=== PATIENT | female | born 1950 | race Hispanic/Latino ===

== ENCOUNTER 2017-09-20 14:05 | Emergency (ER) | payer OTHER ==
[~2017-09-20] VITALS: Ht 154.9 cm; Wt 80.7 kg
[2017-09-20] MEDS ORDERED: SODIUM CHLORIDE 0.9% 1000ML 1,000 ML IV STA (14:48)
[2017-09-20] MEDS ORDERED: MORPHINE SULFATE 4 MG/ML SYR IV STA (14:48)
[2017-09-20] MEDS ORDERED: ONDANSETRON HCL INJ 2 MG/ML VIAL IV STA (14:48)
[2017-09-20 14:56] LABS: BASOPHILS # (AUTO) 0.1 (0.0-0.1); BASOPHILS % 0.8 % (0.0-1.0); EOSINOPHILS # (AUTO) 0.2 (0.0-0.4); HEMATOCRIT 43.8 % (34.2-44.1); HEMOGLOBIN 14.7 g/dL (12.0-16.0); LYMPHOCYTES # (AUTO) 3.3 (1.0-3.2); LYMPHOCYTES % 35.8 % (18.0-39.1); MEAN CORPUSCULAR HEMOGLOBIN 28.3 pg (28-32); MEAN CORPUSCULAR HGB CONC 33.6 g/dL (31-35); MEAN CORPUSCULAR VOLUME 84.2 fL (81-99); MONOCYTES # (AUTO) 0.6 (0.2-0.8); MONOCYTES % 6.2 % (4.4-11.3); NEUTROPHILS % 54.9 % (38.7-80.0); PLATELET COUNT 369 x10e3/uL (140-360); RED CELL DISTRIBUTION WIDTH 13.6 % (11.7-14.4)
[2017-09-20 15:08] LABS: ALBUMIN 4.1 g/dL (3.5-5.0); ALBUMIN/GLOBULIN RATIO 0.9 (0.8-2.0); ANION GAP 14.5 mmol/L (8-16); CALCIUM 9.2 mg/dL (8.4-10.2); CREATININE, SERUM 1.09 mg/dL (0.57-1.11)
[2017-09-20 15:16] LABS: POTASSIUM 2.5 mmol/L (3.5-5.1)
[2017-09-20 15:46] LABS: BILIRUBIN,URINE NEGATIVE (NEGATIVE); CLARITY,URINE CLEAR (CLEAR); COLOR,URINE YELLOW (YELLOW); KETONES,URINE NEGATIVE (NEGATIVE); LEUKOCYTE ESTERASE ,URINE 2+ (NEGATIVE); NITRITE,URINE NEGATIVE (NEGATIVE); URINE UROBILINOGEN 0.2 mg/dL (0.2 - 1)
[2017-09-20 15:49] LABS: PROTEIN,URINE DIPSTICK 1+ (NEGATIVE)
[2017-09-20 15:50] LABS: BACTERIA,URINE FEW /HPF; EPITHELIAL CELLS,URINE FEW /LPF
[2017-09-20 15:53] LABS: STREPTOCOCCUS GRP A ANTIGEN NEGATIVE (NEGATIVE)
[2017-09-20 16:00] LABS: INFLUENZAE A&B ANTIGEN (RAPID) NEGATIVE (NEGATIVE)
[2017-09-20] MEDS ORDERED: MORPHINE SULFATE 5 MG/ML VIAL IV SCH (16:00)
--- NOTE | 2017-09-20 16:23 | Diagnostic Imaging Report ---
PROCEDURE: Frontal and lateral views of the chest. COMPARISON: None. INDICATIONS: SOB, VOMITING FINDINGS: Lines/tubes: None. Lungs: The lungs are well inflated and clear. There is no evidence of pneumonia or pulmonary edema. Pleura: There is no pleural effusion or pneumothorax. Heart and mediastinum: The heart and the mediastinum are normal. Bones: No acute bony abnormality. IMPRESSION: 1. No acute cardiopulmonary abnormalities. Sammy Smith M.D. Dictated by: Sammy Smith M.D. on 09/20/2017 at 16:31 Electronically approved by: Sammy Smith M.D. on 09/20/2017 at 16:31
--- NOTE | 2017-09-20 16:29 | Diagnostic Imaging Report ---
PROCEDURE: CT ABDOMEN AND PELVIS WITH CONTRAST TECHNIQUE: A The abdomen and pelvis were scanned utilizing a multidetector helical scanner from the diaphragm to the lesser trochanter after the IV administration of 100 cc of Isovue 370 and the oral administration of water. Coronal and sagittal multiplanar reformations were obtained. COMPARISON: None. INDICATIONS: NAUSEA, VOMITING SINCE SATURDAY FINDINGS: LOWER THORAX: Normal. HEPATOBILIARY: Normal hepatic size and contour. 2.2 x 1.6 cm hepatic segment II/III (series 2 image 12) and 2.1 x 2.0 cm hepatic segment IVB (series 2 image 22) fluid density lesions, consistent with simple cysts. Subcentimeter hypodense lesions in segments II (series 2, image 8), and VIII (series 2, image 16), are to small to characterize, but likely represent small cysts. No other focal lesions. No biliary ductal dilation. Gallbladder is unremarkable. SPLEEN: No splenomegaly. PANCREAS: No focal masses or ductal dilatation. ADRENALS: No adrenal nodules. KIDNEYS/URETERS: No hydronephrosis, stones, or solid mass lesions. PELVIC ORGANS/BLADDER: Bladder is unremarkable. Uterus is absent. No adnexal masses. PERITONEUM / RETROPERITONEUM: No free air or fluid. LYMPH NODES: No lymphadenopathy. VESSELS: Unremarkable GI TRACT: No bowel dilation or evidence of obstruction. No pericolonic inflammatory changes. Stomach is unremarkable. BONES AND SOFT TISSUES: No aggressive lytic lesions. Mild degenerative changes in the lower lumbosacral spine. Small fat-containing umbilical hernia. IMPRESSION: 1. No acute abdominopelvic abnormalities. Unremarkable appearance of the bowel. 2. Simple hepatic cysts. Sammy Smith M.D. Dictated by: Sammy Smith M.D. on 09/20/2017 at 16:38 Electronically approved by: Sammy Smith M.D. on 09/20/2017 at 16:38
[2017-09-20] MEDS ORDERED: KCL 20MEQ/.9 SOD CHL 1,000 ML IV SCH ×2 (16:30→16:45)
[2017-09-20] MEDS ORDERED: CEFTRIAXONE SOD 1 GM VIAL IV SCH (16:30)
[2017-09-20] MEDS ORDERED: POTASSIUM CHLORIDE 20 MEQ TAB CR PO STA (18:20)
[2017-09-20 18:32] VITALS: BP 116/71
[2017-09-20] MEDS ORDERED: TYLENOL WITH C1 EACH PO (18:50)
[2017-09-20] MEDS ORDERED: BENTYL10 MG PO (18:50)
[2017-09-20] MEDS ORDERED: BACTRIM DS TAB1 EACH PO (18:50)
[2017-09-20] MEDS ORDERED: PROMETHAZINE HC25 M1 PO (18:50)
[2017-09-20] MEDS ORDERED: SODIUM CHLORIDE 0.9% 50ML 50 ML ONE (22:11)
[2017-09-20] MEDS ORDERED: IOPAMIDOL 370 MG/ML 200 ML INFUS..BTL INJ ONE (22:11)
== END 2017-09-20 19:22 | disposition home or self-care (01) ==
LOC: ER 14:05
DX: R11.2 Nausea with vomiting, unspecified (principal); N30.91 Cystitis, unspecified with hematuria; R19.7 Diarrhea, unspecified; I10 Essential (primary) hypertension
CPT/HCPCS: 36415; 71046; 74177; 80053; 81001; 83518; 83690; 85025; 87070; 87086; 87400; 99284; J0696; J2405; J7030; Q9967

== ENCOUNTER 2017-10-04 14:05 | Emergency (ER) | payer OTHER ==
[~2017-10-04] VITALS: Ht 154.9 cm; Wt 80.7 kg
[~2017-10-04 14:05] MED LIST: BACTRIM DS TAB1 EACH PO; BENTYL10 MG PO; PROMETHAZINE HC25 M1 PO; TYLENOL WITH C1 EACH PO
--- OUTSIDE RECORDS SUMMARY | 2017-10-04 14:09 | XMS REPORT ---
Author Author [facility] Address Unknown Phone Unavailable Care Team Providers Care Corporate Real Estate Manager Name Role Phone NATHAN WRIGHT Unavailable Unavailable Problems This patient has no known problems. Allergies, Adverse Reactions, Alerts This patient has no known allergies or adverse reactions. Medications This patient has no known medications. Encounters Start Date/Time End Date/Time Encounter Type Admission Type Attending Clinicians Care Facility Care Department Encounter ID 2017-02-25 04:18:52 2017-02-25 04:18:52 Emergency [facility] MED [id number] Results Test Description Test Time Test Comments Text Results Atomic Results Result Comments CHEST 2 VIEWS [place] [address] Patient Name: DELIA CHOWDHURY MR #: [id number] : 1950 Age/Sex: 67/F Req #: [id number] Adm Physician: Ordered by: NATHAN WRIGHT MD Report #: [id number] Location: ER Room/Bed: Procedure: [id number] DX/CHEST 2 VIEWS Exam Date: 09/20/17 Exam Time: 1530 REPORT STATUS: Signed PROCEDURE: Frontal and lateral views of the chest. COMPARISON: None. INDICATIONS: SOB, VOMITING FINDINGS: Lines/tubes: None. Lungs: The lungs are well inflated and clear. There is no evidence of pneumonia or pulmonary edema. Pleura: There is no pleural effusion or pneumothorax. Heart and mediastinum: The heart and the mediastinum are normal. Bones: No acute bony abnormality. IMPRESSION: 1. No acute cardiopulmonary abnormalities. Mireay Zambrano M.D. Dictated by: Mireya Zambrano M.D. on 09/20/2017 at 16:31 Electronically approved by: Mireya Zambrano M.D. on 2017 at 16:31 Dictated By: MIREYA ZAMBRANO MD 1631 Transcribed By: AMRITA on 1631 COPY TO: NATHAN WRIGHT MD CT ABDOMEN/PELVIS W [place] [address] Patient Name: DELIA CHOWDHURY MR #: [id number] : 1950 Age/Sex: 67/F Req #: [id number] Adm Physician: Ordered by: NATHAN WRIGHT MD Report #: [id number] Location: ER Room/Bed: Procedure: [id number] CT/CT ABDOMEN/PELVIS W Exam Date: 09/20/17 Exam Time: 1530 REPORT STATUS: Signed PROCEDURE: CT ABDOMEN AND PELVIS WITH CONTRAST TECHNIQUE: A The abdomen and pelvis were scanned utilizing a multidetector helical scanner from the diaphragm to the lesser trochanter after the IV administration of 100 cc of Isovue 370 and the oral administration of water. Coronal and sagittal multiplanar reformations were obtained. COMPARISON: None. INDICATIONS: NAUSEA , VOMITING SINCE SATURDAY FINDINGS: LOWER THORAX: Normal. HEPATOBILIARY : Normal hepatic size and contour. 2.2 x 1.6 cm hepatic segment II/III ( series 2 image 12) and 2.1 x 2.0 cm hepatic segment IVB (series 2 image 22) fluid density lesions, consistent with simple cysts. Subcentimeter hypodense lesions in segments II (series 2, image 8), and VIII (series 2, image 16), are to small to characterize, but likely represent small cysts. No other focal lesions. No biliary ductal dilation. Gallbladder is unremarkable. SPLEEN: No splenomegaly. PANCREAS: No focal masses or ductal dilatation. ADRENALS: No adrenal nodules. KIDNEYS/URETERS: No hydronephrosis , stones, or solid mass lesions. PELVIC ORGANS/BLADDER: Bladder is unremarkable. Uterus is absent. No adnexal masses. PERITONEUM / RETROPERITONEUM: No free air or fluid. LYMPH NODES: No lymphadenopathy. VESSELS: Unremarkable GI TRACT: No bowel dilation or evidence of obstruction. No pericolonic inflammatory changes. Stomach is unremarkable. BONES AND SOFT TISSUES: No aggressive lytic lesions. Mild degenerative changes in the lower lumbosacral spine. Small fat-containing umbilical hernia. IMPRESSION: 1. No acute abdominopelvic abnormalities. Unremarkable appearance of the bowel. 2. Simple hepatic cysts. Mireya Zambrano M.D. Dictated by: Mireya Zambrano M.D. on 09/20/2017 at 16:38 Electronically approved by: Mireya Zambrano M.D. on 09/20/2017 at 16 :38 Dictated By: MIREYA ZAMBRANO MD 1638 Transcribed By: AMRITA on 09/20/17 1638 COPY TO: NATHAN WRIGHT MD
[2017-10-04 15:32] LABS: BILIRUBIN,URINE NEGATIVE (NEGATIVE); CLARITY,URINE CLEAR (CLEAR); COLOR,URINE YELLOW (YELLOW); KETONES,URINE NEGATIVE (NEGATIVE); LEUKOCYTE ESTERASE ,URINE NEGATIVE (NEGATIVE); NITRITE,URINE NEGATIVE (NEGATIVE); PROTEIN,URINE DIPSTICK NEGATIVE (NEGATIVE); URINE UROBILINOGEN 0.2 mg/dL (0.2 - 1)
[2017-10-04 15:48] LABS: EPITHELIAL CELLS,URINE RARE /LPF; MUCUS,URINE FEW (RARE); RBC,URINE 0-5 /HPF (0-5); WBC,URINE (MAN) 0-5 /HPF (0-5)
== END 2017-10-04 17:54 | disposition left against medical advice (07) ==
LOC: ER 14:05
DX: R10.12 Left upper quadrant pain (principal); R11.2 Nausea with vomiting, unspecified; I10 Essential (primary) hypertension; E78.5 Hyperlipidemia, unspecified
CPT/HCPCS: 81001; 87086; 99282

== ENCOUNTER 2018-12-08 15:35 | Emergency (ER) | payer OTHER ==
[2018-12-08] MEDS ORDERED: HYDROCHLOROTHIA25 MG (17:11)
[2018-12-08] MEDS ORDERED: PAROXETINE HCL20 MG PO (17:11)
[2018-12-08] MEDS ORDERED: LORAZEPAM1 MG PO (17:11)
[2018-12-08] MEDS ORDERED: BUPROPION HCL100 MG PO (17:11)
[2018-12-08] MEDS ORDERED: CRESTOR10 MG PO (17:11)
[2018-12-08] MEDS ORDERED: POTASSIUM CHLO20 ME1 PO (17:11)
[2018-12-08] MEDS ORDERED: PANTOPRAZOLE SO40 MG PO (17:11)
== END 2018-12-08 16:05 | disposition short-term general hospital (02) ==
LOC: ER 15:35
DX: S80.869A Insect bite (nonvenomous), unspecified lower leg, initial encounter (principal)

== ENCOUNTER 2018-12-08 16:18 | Emergency (ER) | payer MEDICARE, OTHER ==
[~2018-12-08] VITALS: Ht 160 cm; Wt 83.0 kg
[2018-12-08] MEDS ORDERED: LORAZEPAM1 MG PO (17:11)
[2018-12-08] MEDS ORDERED: CRESTOR10 MG PO (17:11)
[2018-12-08] MEDS ORDERED: PANTOPRAZOLE SO40 MG PO (17:11)
[2018-12-08] MEDS ORDERED: HYDROCHLOROTHIA25 MG (17:11)
[2018-12-08] MEDS ORDERED: BUPROPION HCL100 MG PO (17:11)
[2018-12-08] MEDS ORDERED: POTASSIUM CHLO20 ME1 PO (17:11)
[2018-12-08] MEDS ORDERED: PAROXETINE HCL20 MG PO (17:11)
[2018-12-08] MEDS ORDERED: ONDANSETRON HCL INJ 2MG/ML 2ML 2 MG/ML VIAL IV STA (17:23)
[2018-12-08] MEDS ORDERED: KETOROLAC TROMETHAMINE 30 MG/ML VIAL IV STA (17:23)
[2018-12-08] MEDS ORDERED: SODIUM CHLORIDE 0.9% 1000ML 1,000 ML IV SCH (17:30)
[2018-12-08] MEDS ORDERED: LIDOCAINE 1% 5ML-MPF INJ ONE (17:30)
[2018-12-08] MEDS ORDERED: CLINDAMYCIN 600MG / 50ML 50 ML IV ONE (17:30)
== END 2018-12-08 18:43 | disposition home or self-care (01) ==
LOC: FSED 16:18
DX: L03.116 Cellulitis of left lower limb (principal); L02.416 Cutaneous abscess of left lower limb; I10 Essential (primary) hypertension; E78.5 Hyperlipidemia, unspecified; K21.9 Gastro-esophageal reflux disease without esophagitis
CPT/HCPCS: 10061; 80053; 85025; 99284; J1885; J2405

== ENCOUNTER 2019-07-27 10:26 | Inpatient (IN) | payer MEDICARE ==
[~2019-07-27] VITALS: Ht 162.6 cm; Wt 84.8 kg
[~2019-07-27 10:26] MED LIST changes: +BUPROPION HCL100 MG PO; +CRESTOR10 MG PO; +HYDROCHLOROTHIA25 MG; +LORAZEPAM1 MG PO; +PANTOPRAZOLE SO40 MG PO; +PAROXETINE HCL20 MG PO; +POTASSIUM CHLO20 ME1 PO
[2019-07-27] MEDS ORDERED: SODIUM CHLORIDE 0.9% 1000ML 1,000 ML IV ONE (11:00)
[2019-07-27] MEDS ORDERED: ALBUTEROL SULF 0.083% NEB SOLN 3 ML NEB NEB STA (11:06)
[2019-07-27] MEDS ORDERED: SODIUM CHLORIDE 0.9% 50ML 0 ML ONE (11:20)
[2019-07-27] MEDS ORDERED: IOPAMIDOL 370 MG/ML 200 ML INFUS..BTL INJ ONE (11:20)
[2019-07-27] MEDS ORDERED: ALBUTEROL/IPRATROPIUM 3 ML NEB ONE (11:42)
[2019-07-27] MEDS ORDERED: SODIUM CHLORIDE 0.9% 500ML 500 ML ONE (11:43)
--- NOTE | 2019-07-27 11:56 | NUR ---
PT RESTING, VITAL SIGNS STABLE, PT VOICES NO COMPLAINTS AT THIS TIME
[2019-07-27] MEDS ORDERED: POTASSIUM CHLORIDE 20 MEQ TAB CR PO STA ×2 (12:22→12:51)
--- NOTE | 2019-07-27 12:32 | Diagnostic Imaging Report ---
EXAMINATION: PA and lateral views of the chest. COMPARISON: None CLINICAL HISTORY: Pain DISCUSSION: Lines/tubes: None. Lungs: The lungs are well inflated and clear. No pneumonia or pulmonary edema. Pleura: No pleural effusion or pneumothorax. Heart and mediastinum: The cardiomediastinal silhouette is normal. Bones and soft tissues: No acute bony abnormalities. IMPRESSION: No acute cardiopulmonary abnormalities. Signed by: Dr. Emery Gracia M.D. on 07/27/2019 12:28 PM
[2019-07-27] MEDS ORDERED: POTASSIUM CHLORIDE 20 MEQ TAB CR PO ONE (12:34)
--- NOTE | 2019-07-27 12:41 | Diagnostic Imaging Report ---
EXAM: CT Abdomen and Pelvis WITHOUT intravenous contrast INDICATION: Epigastric pain, fever COMPARISON: None. TECHNIQUE: Abdomen and pelvis were scanned utilizing a multidetector helical scanner from the lung base to the pubic symphysis without administration of IV contrast. Coronal and sagittal reformations were obtained. IV CONTRAST: None ORAL CONTRAST: Water COMPLICATIONS: None RADIATION DOSE: Total DLP: 801.4 mGy*cm Dose modulation, iterative reconstruction, and/or weight based adjustment of the mA/kV was utilized to reduce the radiation dose to as low as reasonably achievable. FINDINGS: LOWER THORAX: Normal. HEPATOBILIARY: 2.1 cm cyst in segment 4 of the liver and 2.4 cm cyst in the right liver adjacent to the gallbladder fossa. 6 mm hypodensity in segment 8 is too small to adequately characterize on this noncontrast study but statistically also likely represents a cyst. SPLEEN: No splenomegaly. PANCREAS: No focal masses or ductal dilatation. ADRENALS: No adrenal nodules. KIDNEYS/URETERS: No hydronephrosis, stones, or solid mass lesions. PELVIC ORGANS/BLADDER: Phleboliths in the pelvis. Status post hysterectomy. PERITONEUM / RETROPERITONEUM: No free air or fluid. LYMPH NODES: No lymphadenopathy. VESSELS: Unremarkable. GI TRACT: No abnormal bowel wall thickening or bowel obstruction. Normal appendix. BONES AND SOFT TISSUES: No acute osseous injury. No suspicious lytic or blastic lesions. IMPRESSION: No acute findings in the abdomen or pelvis to explain patient's epigastric pain. Signed by: Mateo Saeed MD on 07/27/2019 12:38 PM
[2019-07-27] MEDS ORDERED: D5.45%NS/KCL 20MEQ 1,000 ML IV ONE (13:00)
--- NOTE | 2019-07-27 13:07 | NUR ---
PT TO BE ADMITTED, PT AND FAMILY AWARE OF POC, VITAL SIGNS STABLE, PT VOICES NO COMPLAINTS AT THIS TIME
--- NOTE | 2019-07-27 13:26 | NUR ---
EMS CALLED FOR TRANSPORT 45MIN ETA
[2019-07-27] MEDS: POTASSIUM CHLORIDE 20 MEQ TAB CR PO SCH ×2 (14:11→20:05)
[2019-07-27 15:00] VITALS: BP 116/59
--- NOTE | 2019-07-27 15:00 | NUR ---
PATIENT RECEIVED FROM [facility] PER EMS. ALERT AND VERBALLY RESPONSIVE. DENIED PAIN AT THIS TIME. SKIN WARM AND DRY TO TOUCH, RESPIRATION EVEN AND UNLABORED, ABDOMEN SOFT AND NON DISTENDED. TELEMETRY BOX 25 APPLIED. ORIENTED TO SURROUNDINGS. BED IN LOWER POSITION, CALL LIGHT AT REACH.
[2019-07-27 15:08] VITALS: BP 116/59
[2019-07-27 17:20] LABS: CREATINE KINASE 209 IU/L (29-168)
--- NOTE | 2019-07-27 18:56 | NUR ---
REPORT GIVEN TO ON COMING NURSE. PATIENT IN BED RESTING WITH NO S/S OF DISTRESS.
[2019-07-27 19:15] VITALS: BP 129/59
--- NOTE | 2019-07-27 19:15 | NUR ---
patient received awake, alert, lying quietly in bed. no c/o pain noted. ivf continue to infuse without difficulty. pm assessment complete. patient instructed to call for assistance when needed.
[2019-07-27 19:53] VITALS: BP 129/59
[2019-07-27 21:11] LABS: CREATINE KINASE MB 1.6 ng/mL (0-5.0)
[2019-07-27 23:53] VITALS: BP 101/60
[2019-07-28] VITALS (7 sets, daily range): BP systolic 104–125; BP diastolic 51–65
--- NOTE | 2019-07-28 | NUR ---
patient appears to be resting quietly. no c/o pain noted. daughter remains at patients bedside.
[2019-07-28] MEDS: POTASSIUM CHLORIDE 20 MEQ TAB CR PO SCH (05:49)
[2019-07-28 06:11] LABS: BASOPHILS % 0.8 % (0.0-1.0); EOSINOPHILS # (AUTO) 0.2 (0.0-0.4); HEMATOCRIT 41.2 % (34.2-44.1); HEMOGLOBIN 13.5 g/dL (12.0-16.0); LYMPHOCYTES # (AUTO) 2.5 (1.0-3.2); LYMPHOCYTES % 52.3 % (18.0-39.1); MEAN CORPUSCULAR HEMOGLOBIN 27.2 pg (28-32); MEAN CORPUSCULAR HGB CONC 32.8 g/dL (31-35); MEAN CORPUSCULAR VOLUME 82.9 fL (81-99); MONOCYTES # (AUTO) 0.3 (0.2-0.8); MONOCYTES % 7.1 % (4.4-11.3); NEUTROPHILS # (AUTO) 1.7 (2.1-6.9); NEUTROPHILS % 35.6 % (38.7-80.0); PLATELET COUNT 269 x10e3/uL (140-360); RED BLOOD COUNT 4.97 x10e6/uL (3.6-5.1); RED CELL DISTRIBUTION WIDTH 14.5 % (11.7-14.4)
[2019-07-28 06:20] LABS: ANION GAP 14.5 mmol/L (8-16); BLOOD UREA NITROGEN 9 mg/dL (7-26); BUN/CREATININE RATIO 10 (6-25); CALCIUM 8.9 mg/dL (8.4-10.2); CARBON DIOXIDE 30 mmol/L (22-29); CHLORIDE 99 mmol/L (98-107); CREATININE, SERUM 0.92 mg/dL (0.57-1.11); EST GLOMERULAR FILTRATION RATE > 60 ML/MIN (60-); GLUCOSE 96 mg/dL (74-118); SODIUM 141 mmol/L (136-145)
[2019-07-28 06:30] LABS: POTASSIUM 2.5 mmol/L (3.5-5.1)
[2019-07-28] MEDS ORDERED: POTASSIUM CHLORIDE 20 MEQ TAB CR PO STA (06:40)
--- NOTE | 2019-07-28 06:45 | NUR ---
k+ 2.5 Dr. Silvestre notified and new orders noted.
[2019-07-28 07:03] LABS: CREATINE KINASE MB 1.5 ng/mL (0-5.0)
--- NOTE | 2019-07-28 07:20 | NUR ---
PATIENT IN BED RESTING WITH NO S/S OF DISTRESS. DENIED PAIN AT THIS TIME, TELEMETRY BOX IN PLACE. BED IN LOWER POSITION, CALL LIGHT AT REACH.
[2019-07-28] MEDS ORDERED: POTASSIUM CHLORIDE 20 MEQ TAB CR PO ONE (09:00)
[2019-07-28] MEDS: SOD CHL 0.45%/POT CHL 20MEQ 1,000 ML IV SCH (10:20)
[2019-07-28] MEDS: FAMOTIDINE 20 MG TAB PO SCH ×2 (10:20→16:49)
--- NOTE | 2019-07-28 11:22 | NUR ---
PATIENT NOTED WITH SMALL AMOUNT OF VOMITING X 2. MD NOTIFIED, NEW ORDERS RECEIVED.
[2019-07-28] MEDS ORDERED: PROMETHAZINE 12.5MG/ NACL 0.9% 12.5 MG/50 ML BAG IV PRN (11:30)
[2019-07-28] MEDS ORDERED: ONDANSETRON HCL INJ 2MG/ML 2ML 2 MG/ML VIAL IV PRN (11:30)
--- NOTE | 2019-07-28 11:48 | History and Physical ---
PRIMARY CARE PHYSICIAN: Tonny Sylvester MD. CHIEF COMPLAINT: Intractable nausea and vomiting and low potassium. HISTORY OF PRESENT ILLNESS: The patient is a 68-year-old female went to outpatient emergency room for intractable nausea and vomiting. CT scan of abdomen and pelvis did not reveal any significant abnormality other than some liver cyst. The patient also has very low potassium level. She was replaced as an outpatient, but today morning, the patient's potassium level was still 2.5. She is still having nausea and vomiting and abdominal generalized discomfort. The patient is otherwise stable. PAST MEDICAL HISTORY: Hypertension, anxiety disorder, depression, and dyslipidemia. Reflux issue, diabetes disorder. PAST SURGICAL HISTORY: Hysterectomy. SOCIAL HISTORY: The patient does not smoke or use alcohol. No regular drug. ALLERGIES: NO KNOWN ALLERGIES. HOME MEDICATIONS: The patient is on: 1. Bupropion. 2. HCTZ. 3. Lorazepam. 4. Protonix. 5. Paxil. 6. Potassium. 7. Crestor. PHYSICAL EXAMINATION: VITAL SIGNS: Temperature is 98, blood pressure 104/65, pulse rate 79, and respirations 18. GENERAL: The patient seems weak, but she is not in acute distress. HEENT: Normocephalic, atraumatic. Pupils reactive. Anicteric. NECK: Supple grossly. PULMONARY: Diminished breath sounds without any wheezing or rales. CARDIOVASCULAR: S1, S2. Regular rhythm. ABDOMEN: Soft. Generalized discomfort. No rebound or guarding. EXTREMITIES: No cyanosis or edema. NEUROLOGIC: No focal deficit. IMAGING DATA: CT of abdomen and pelvis only showed a liver cyst. No acute findings. LABORATORY DATA: Sodium is 141. IMPRESSION: Intractable nausea and vomiting associated with low potassium. This could be secondary to also taking HCTZ, although the patient was taking potassium at home. She is still having abdominal pain. PLAN: We will obtain a HIDA scan for the gallbladder. Continue with supportive measure, IV fluid, potassium replacement. Consultation with Dr. Aries Collier. We will monitor the patient closely. Because of the patient's persistent low potassium, the patient will be admitted inpatient for further replacement . MD JESSICA Licea/MODL /[id number]
--- NOTE | 2019-07-28 14:30 | NUR ---
PATIENT C/O NAUSEA AND VOMITING, PRN MEDICATION GIVEN ORDERED. PATIENT IN BED RESTING WITH NO DISTRESS. STATED "I AM FEELING BETTER". CALL LIGHT AT REACH.
--- NOTE | 2019-07-28 17:00 | NUR ---
PATIENT OFF UNIT TO NUCLEAR MEDICINE.
--- NOTE | 2019-07-28 19:30 | NUR ---
patient received awake, alert, lying quietly in bed. no c/o pain or nausea noted at this time. ivf continue to infuse without difficulty. pm assessment complete. daughter noted at the bedside. patient/daughter instructed to call for assistance when needed.
--- NOTE | 2019-07-28 21:10 | Diagnostic Imaging Report ---
Hepatobiliary Scan with Gallbladder Ejection Fraction Clinical information: Hypokalemia; nausea and vomiting x 6 days; Technique: Following intravenous administration of 5.6 millicuries of Tc-99m mebrofenin, dynamic images of the abdomen in the anterior projection were obtained through 60 minutes. Sincalide (CCK analog) 1.7 micrograms was administered intravenously over 30 minutes with additional imaging for determination of gallbladder ejection fraction. Discussion: Perfusion of the liver is normal. Extraction of tracer by the liver parenchyma is normal. Tracer appears promptly within the biliary tract. The gallbladder begins to fill by 7 minutes post injection of tracer and fills adequately. Tracer is seen in the small bowel by 5 minutes. The gallbladder ejection fraction with sincalide is 18% (normal greater than 40%). Impression: 1. Filling of the gallbladder excludes acute cystic duct obstruction/acute cholecystitis. 2. The decreased gallbladder ejection fraction of 18% supports the clinical diagnosis of chronic cholecystitis/gallbladder dyskinesia. Signed by: Dr. Nica Mondragon M.D. on 07/28/2019 9:07 PM
[2019-07-29] VITALS: BP 101/54
[2019-07-29] MEDS: SOD CHL 0.45%/POT CHL 20MEQ 1,000 ML IV SCH
--- NOTE | 2019-07-29 00:47 | Consultation ---
DATE OF CONSULTATION: Gastroenterology Consultation Gastroenterology consultation dictated for Dr. Aries Collier on [facility] of Dr. Olamide Vallejo PA-C CHIEF COMPLAINT: Intractable nausea and vomiting along with hypokalemia. REASON FOR CONSULT: Intractable nausea and vomiting. HISTORY OF PRESENT ILLNESS: The patient is a 68-year-old female with past medical history of hypertension, anxiety disorder, depression, dyslipidemia, who presented with reports of intractable nausea, vomiting following a flu shot. The patient was also found to have hypokalemia. The patient was given potassium replacement, however, she continued to have nausea, vomiting throughout the day. She states that Phenergan actually helps with her symptoms. She states she has had an EGD about two years ago and was told she has gastritis. She currently takes omeprazole at home. She denies any melena, hematochezia, or hematemesis. She denies no previous history of gallstones. She denies any chest pain or shortness of breath. PAST MEDICAL HISTORY: Hypertension, depression, anxiety disorder, and gastritis. SURGICAL HISTORY: She reports of a hysterectomy. SOCIAL HISTORY: She does not report recreational drugs, smoking, or alcohol use. ALLERGIES: NO KNOWN DRUG ALLERGIES. OF NOW, DILANTIN MENTIONED. HOME MEDICATIONS: See EMR. PHYSICAL EXAMINATION: VITAL SIGNS: Temperature 97.4, pulse 74, respiratory 16, blood pressure 115/51, pulse ox 93. GENERAL: Alert and oriented. HEENT: Normocephalic. Anicteric. NECK: Supple grossly. PULMONARY: Diminished breath sounds. No crackles, wheezing, or rales. CARDIOVASCULAR: Regular rhythm and rate. ABDOMEN: Epigastric discomfort, otherwise soft and bowel sounds active. EXTREMITIES: No cyanosis or edema. NEURO: No focal deficit. PSYCH: Flat affect. IMAGING DATA: CT of the abdomen and pelvis showed a liver cyst. No other acute findings were mentioned. LABORATORY DATA: White count 4.76, hemoglobin 13.5, MCV 82.9. Chemistry, sodium 141, potassium 3.5, creatinine 0.92. ASSESSMENT: 1. Intractable nausea, vomiting. 2. Hypokalemia. 3. History of gastritis. PLAN: 1. The patient is scheduled for a HIDA scan today for the gallbladder to rule out any biliary issues. 2. She will plan for an EGD tomorrow with Dr. Collier to rule out any other ulcers. 3. Continue IV PPI b.i.d. 4. Full liquid diet for now and n.p.o. after midnight and consent ordered. Procedure was discussed with the patient. 5. Replacement of potassium, potassium was being raised in order for us to do the procedure. 6. Continue both Phenergan and Zofran. Thank you for the consult. Please call us if any questions. KOKO Jones/MODL /[id number]
[2019-07-29 04:00] VITALS: BP 122/67
[2019-07-29 05:49] LABS: BASOPHILS % 0.8 % (0.0-1.0); EOSINOPHILS # (AUTO) 0.2 (0.0-0.4); EOSINOPHILS % 3.6 % (0.0-6.0); HEMATOCRIT 38.3 % (34.2-44.1); HEMOGLOBIN 12.4 g/dL (12.0-16.0); LYMPHOCYTES # (AUTO) 2.7 (1.0-3.2); LYMPHOCYTES % 50.7 % (18.0-39.1); MEAN CORPUSCULAR HEMOGLOBIN 27.2 pg (28-32); MEAN CORPUSCULAR HGB CONC 32.4 g/dL (31-35); MONOCYTES # (AUTO) 0.3 (0.2-0.8); MONOCYTES % 6.2 % (4.4-11.3); NEUTROPHILS # (AUTO) 2.1 (2.1-6.9); NEUTROPHILS % 38.5 % (38.7-80.0); PLATELET COUNT 260 x10e3/uL (140-360); RED BLOOD COUNT 4.56 x10e6/uL (3.6-5.1); RED CELL DISTRIBUTION WIDTH 14.4 % (11.7-14.4)
--- NOTE | 2019-07-29 06:00 | NUR ---
consent for egd obtained at this time and placed on chart.
[2019-07-29 06:06] LABS: ANION GAP 15.1 mmol/L (8-16); BLOOD UREA NITROGEN 9 mg/dL (7-26); BUN/CREATININE RATIO 10 (6-25); CALCIUM 8.6 mg/dL (8.4-10.2); CARBON DIOXIDE 27 mmol/L (22-29); CHLORIDE 104 mmol/L (98-107); CREATININE, SERUM 0.88 mg/dL (0.57-1.11); EST GLOMERULAR FILTRATION RATE > 60 ML/MIN (60-); GLUCOSE 93 mg/dL (74-118); POTASSIUM 3.1 mmol/L (3.5-5.1); SODIUM 143 mmol/L (136-145)
[2019-07-29 07:25] VITALS: BP 114/73
--- NOTE | 2019-07-29 07:35 | NUR ---
PT UP IN BED,SLEEPING NO S/S DISCOMFORT.
[2019-07-29 08:00] VITALS: BP 114/73
[2019-07-29] MEDS: FAMOTIDINE 20 MG TAB PO SCH ×2 (08:17→16:30)
[2019-07-29 12:45] VITALS: BP 108/67
--- NOTE | 2019-07-29 15:15 | NUR ---
PT REST QUIETLY; FAMILY AT BEDSIDE.
--- NOTE | 2019-07-29 15:30 | NUR ---
PT RESTING. NO COMPLAINTS OF PAINS VOICED. FAMILY AT SIDE
[2019-07-29 16:00] VITALS: BP 131/80
[2019-07-29] MEDS ORDERED: PROPOFOL IV EMULSION 10 MG/ML 20 ML VIAL ONE (17:54)
[2019-07-29] MEDS ORDERED: LIDOCAINE HCL 2% LOCAL INJ 5 ML SDV VIAL INJ ONE (17:54)
== END 2019-07-29 18:58 | disposition home or self-care (01) | DRG 641 ==
LOC: FSED 10:26 → ERHOLD 12:56 → MED/SURG3 14:45 → OBSVTOIN 07-28 09:53
PROVIDERS: ADMIT Internal Medicine; ATTEND Internal Medicine
PROC: 0DB78ZX Excision of Stomach, Pylorus, Via Natural or Artificial Opening Endoscopic, Diagnostic (ICD-10-PCS; 2019-07-29)
PROC: 0DB38ZX Excision of Lower Esophagus, Via Natural or Artificial Opening Endoscopic, Diagnostic (ICD-10-PCS; principal; 2019-07-29 11:56)
DX: E87.6 Hypokalemia (principal); I10 Essential (primary) hypertension; E78.5 Hyperlipidemia, unspecified; F32.9 Major depressive disorder, single episode, unspecified; K29.70 Gastritis, unspecified, without bleeding; K44.9 Diaphragmatic hernia without obstruction or gangrene; E11.9 Type 2 diabetes mellitus without complications
CPT/HCPCS: 36415; 43239; 71046; 74176; 78227; 80048; 80076; 81003; 82550; 82553; 83605; 83735; 84484; 85025; 87400; 88305; 88312; 93005; 99284; A9537; G0378; J2001; J2550; J7040; Q9967

== ENCOUNTER 2023-01-29 13:14 | Emergency (ER) | payer MEDICARE, OTHER ==
[~2023-01-29] VITALS: Ht 162.6 cm; Wt 78.9 kg
[2023-01-29 14:19] LABS: BASOPHILS # (AUTO) 0.1 (0.0-0.1); BASOPHILS % 0.9 % (0.0-1.0); EOSINOPHILS # (AUTO) 0.2 (0.0-0.4); EOSINOPHILS % 2.3 % (0.0-6.0); HEMATOCRIT 42.5 % (34.2-44.1); LYMPHOCYTES # (AUTO) 2.6 (1.0-3.2); LYMPHOCYTES % 33.7 % (18.0-39.1); MEAN CORPUSCULAR HEMOGLOBIN 27.6 pg (28-32); MEAN CORPUSCULAR HGB CONC 32.9 g/dL (31-35); MEAN CORPUSCULAR VOLUME 83.7 fL (81-99); MONOCYTES # (AUTO) 0.4 (0.2-0.8); MONOCYTES % 4.5 % (4.4-11.3); NEUTROPHILS # (AUTO) 4.5 (2.1-6.9); NEUTROPHILS % 58.2 % (38.7-80.0); PLATELET COUNT 317 x10e3/uL (140-360); RED BLOOD COUNT 5.08 x10e6/uL (3.6-5.1)
[2023-01-29 14:35] LABS: ALBUMIN 4.1 g/dL (3.5-5.0); ALBUMIN/GLOBULIN RATIO 1.1 (0.8-2.0); ANION GAP 12.7 mmol/L (8-16); CALCIUM 9.5 mg/dL (8.4-10.2); CREATININE, SERUM 0.96 mg/dL (0.57-1.11)
[2023-01-29 14:37] LABS: POTASSIUM 2.7 mmol/L (3.5-5.1)
[2023-01-29] MEDS ORDERED: METHOCARBAMOL500 MG PO (15:13)
[2023-01-29] MEDS ORDERED: ACYCLOVIR800 MG PO (15:13)
[2023-01-29] MEDS ORDERED: PREDNISONE50 MG PO (15:13)
[2023-01-29 15:21] VITALS: O2SAT 95
== END 2023-01-29 15:51 | disposition home or self-care (01) ==
LOC: ER 14:03
DX: R50.9 Fever, unspecified (principal); G51.0 Bell's palsy; M54.50 Low back pain, unspecified; R94.31 Abnormal electrocardiogram [ECG] [EKG]
CPT/HCPCS: 36415; 70450; 71045; 80053; 84484; 85025; 93005; 99284